=== PATIENT | female | born 1980 | race Caucasian/White ===

== ENCOUNTER 2021-12-12 16:17 | Emergency (ER) | payer SELFPAY | END 2021-12-13 01:30 | disposition left against medical advice (07) | LOC: ER1 16:17 | DX: S80.01XA Contusion of right knee, initial encounter (principal); Z86.16 Personal history of COVID-19; Z88.0 Allergy status to penicillin; W19.XXXA Unspecified fall, initial encounter; Y99.0 Civilian activity done for income or pay | CPT/HCPCS: 73564; 99283 ==